=== PATIENT | male | born 1945 | race Caucasian/White ===

== ENCOUNTER 2021-01-05 10:37 | Day surgery (SDC) | payer OTHER | END 2021-01-05 12:00 | disposition home or self-care (01) | LOC: FINFUSION 10:37 → FM/S 10:48 → FINFUSION 12:00 | PROVIDERS: ATTEND Nurse Practitioner Adult Health | PROC: 3E033GC Introduction of Other Therapeutic Substance into Peripheral Vein, Percutaneous Approach (ICD-10-PCS; principal; 2021-01-05) | DX: D64.9 Anemia, unspecified (principal) ==

== ENCOUNTER → 2021-01-08 | Day surgery (SDC) | payer OTHER | END | disposition home or self-care (01) | LOC: FINFUSION 10:31 | PROVIDERS: ATTEND Nurse Practitioner Adult Health | PROC: 3E033GC Introduction of Other Therapeutic Substance into Peripheral Vein, Percutaneous Approach (ICD-10-PCS; principal; 2021-01-08) | DX: Z53.09 Procedure and treatment not carried out because of other contraindication (principal); D64.9 Anemia, unspecified | CPT/HCPCS: C9803; U0003; U0005 ==

== ENCOUNTER 2021-02-01 13:19 | Day surgery (SDC) | payer OTHER ==
[2021-02-01] MEDS ORDERED: FERRIC CARBOXYMALTOSE 750 MG in SODIUM CHLORIDE 250 ML IVPB ONE (14:00)
[2021-02-01 16:31] VITALS: BP 136/86; PULSE 78; TEMP 98.6
== END 2021-02-01 16:00 | disposition home or self-care (01) ==
LOC: FINFUSION 13:19 → FM/S 13:25 → FINFUSION 16:00
PROVIDERS: ATTEND Nurse Practitioner Adult Health
PROC: 3E033GC Introduction of Other Therapeutic Substance into Peripheral Vein, Percutaneous Approach (ICD-10-PCS; principal; 2021-02-01)
DX: D50.9 Iron deficiency anemia, unspecified (principal)
CPT/HCPCS: 96365; J1439

== ENCOUNTER 2021-02-08 12:09 | Day surgery (SDC) | payer OTHER ==
[2021-02-08] MEDS ORDERED: FERRIC CARBOXYMALTOSE 750 MG in SODIUM CHLORIDE 250 ML IVPB ONE (12:45)
[2021-02-08 13:00] VITALS: BP 124/65; PULSE 68; TEMP 98.5
== END 2021-02-08 13:30 | disposition home or self-care (01) ==
LOC: FINFUSION 12:09 → FM/S 12:16 → FINFUSION 13:30
PROVIDERS: ATTEND Nurse Practitioner Adult Health
PROC: 3E033GC Introduction of Other Therapeutic Substance into Peripheral Vein, Percutaneous Approach (ICD-10-PCS; principal; 2021-02-08)
DX: D50.9 Iron deficiency anemia, unspecified (principal)
CPT/HCPCS: 96365; J1439